=== PATIENT | female | born 1930 | race Caucasian/White ===

== ENCOUNTER 2016-09-28 19:15 | Inpatient (IN) | payer OTHER, MEDICARE ==
[~2016-09-28] VITALS: Ht 167.6 cm; Wt 82.6 kg
[~2016-09-28 19:15] MED LIST: [UNRECOGNIZED DRUG - REMARK]; [UNRECOGNIZED DRUG - REMARK]; [UNRECOGNIZED DRUG - REMARK]; lutein
[2016-09-28 19:23] VITALS: BP 170/80; PULSE 90; RESP 20; TEMP 98.3
--- NOTE | 2016-09-28 19:40 | PD ---
HPI Chief Complaint: Fall Time Seen by Provider: 19:39 Travel History International Travel<30 days: No Contact w/Intl Traveler<30days: No Traveled to known affect area: No History of Present Illness HPI Patient comes in for evaluation status post trip and fall while getting ready to play bingo. Patient states she tripped over a chair hitting the back of her head on the floor and landing on her right hip. Patient denies any loss of consciousness, headache, change in vision, vomiting, neck pain, chest pain, shortness of breath, numbness or tingling, or being on any blood thinners. Patient states she has pain in her right hip with movement that goes away with not moving it. Patient was offered something for pain, but does not want anything currently. PFSH Past Medical History Arthritis: Yes Cancer: Yes (COLON) High Cholesterol: Yes Diminished Hearing: No Menopausal: Yes Tubal Ligation: Yes Past Surgical History Abdominal Surgery: Yes (1986,1 1/2 feet of colon removed,colon ca) Appendectomy: Yes Other Surgery: Yes ("cyst removed from back") Social History Alcohol Use: Yes ("glass of wine every night") Tobacco Use: No Substance Use: No Allergies-Medications (Allergen,Severity, Reaction): Coded Allergies: No Known Allergies (Verified , 09/28/16) Reported Meds & Prescriptions Reported Meds & Active Scripts Active Reported Vitamin B12 (Cyanocobalamin) 100 Mcg Tab 100 Mcg PO DAILY Vitamin E 400 Unit Cap 400 Units PO DAILY Vitamin C (Ascorbic Acid) 500 Mg Cap 500 Mg PO Vitamin A 10,000 Unit Cap 10,000 Units PO DAILY Atorvastatin (Atorvastatin Calcium) 10 Mg Tab 10 Mg PO HS Losartan (Losartan Potassium) 25 Mg Tab 12.5 Mg PO DAILY ["water pill"] DAILY ["billberry"] DAILY [lutein] DAILY ["antibiotic"] BID Review of Systems Except as stated in HPI: all other systems reviewed are Neg Physical Exam Narrative GENERAL: Well-developed, overly nourished, in no acute distress, and non-ill appearing. SKIN: Warm and dry. HEAD: Atraumatic. Normocephalic. EYES: Pupils equal and round. EOMI. No scleral icterus. No injection or drainage. ENT: No nasal bleeding or discharge. Mucous membranes pink and moist. NECK: Trachea midline. No midline tenderness or crepitus. Supple. No nuclear rigidity. CARDIOVASCULAR: Regular rate and rhythm. No murmur appreciated. Pulses pulses 2+ intact bilaterally. Capillary refills less than 2 seconds. RESPIRATORY: No accessory muscle use. No respiratory distress. Clear to auscultation. Breath sounds equal bilaterally. MUSCULOSKELETAL: No obvious deformities. No clubbing. No cyanosis. No edema. Decreased range of motion right hip secondary to pain. Pelvic stable. Patient reports tenderness to palpation over right greater trochanter. Hip: Pulses equal BL distal to injury. Capillary refill less than 2 seconds distal to injury and equal BL. FROM distal to injury and equal BL. Strength distal to injury equal BL. NV intact distal to injury and equal BL. Plantar flexion and dorsal flexion equal BL. Dorsal pulses equal BL. Sensation intact over first web space and bilateral lower extremities. NEUROLOGICAL: Awake and alert. No obvious cranial nerve deficits. Motor grossly within normal limits. Normal speech. PSYCHIATRIC: Appropriate mood and affect; insight and judgment normal. Data Data Last Documented VS Orders Ct Brain W/O Iv Contrast(Rout) (09/28/16 ) Ct Cerv Spine W/O Contrast (09/28/16 ) Iv Access Insert/Monitor (09/28/16 19:37) Hip, Uni(Ap&Lat) W Ap Pelvis (09/28/16 ) Complete Blood Count With Diff (09/28/16 19:37) Act Partial Throm Time (Ptt) (09/28/16 19:37) Prothrombin Time / Inr (Pt) (09/28/16 19:37) Basic Metabolic Panel (Bmp) (09/28/16 19:37) Morphine Inj (Morphine Inj) (09/28/16 20:15) Ondansetron Inj (Zofran Inj) (09/28/16 20:15) Consult Orthopedic (09/28/16 ) Losartan (Cozaar) (09/28/16 22:00) Morphine Inj (Morphine Inj) (09/28/16 22:00) Admit Order (Ed Use Only) (09/28/16 21:58) Labs MDM Medical Decision Making Medical Screen Exam Complete: Yes Emergency Medical Condition: Yes Differential Diagnosis Fracture, contusion, strain, intracranial hemorrhage, closed head injury, other Narrative Course Patient seen and examined. Initial laboratory neurological status ordered and reviewed. Patient was given morphine for pain and Zofran for nausea. Discussed patient with Dr. Nuñez, who is in agreement with plan of care and disposition. Discussed all findings and plan of care with patient who is agreeable for admission. All questions were answered. Physician Communication Physician Communication [address] Thomas recommends having patient admitted to medicine for surgery likely tomorrow. [address] Yi, who is agreeable to admit the patient. Diagnosis Primary Impression: Closed right hip fracture Qualified Code: S72.001A - Closed right hip fracture, initial encounter Additional Impression: Closed head injury Qualified Code: S09.90XA - Closed head injury, initial encounter Admitting Information Admitting Physician Requests: Admit Scripts Cholecalciferol (Vitamin D3)5,000 Unit Cap5,000 Units PO DAILY #30 CAP Prov:Lenora Strickland MD 10/01/16 Rivaroxaban (Xarelto)10 Mg Tab10 Mg PO DAILY #21 TAB Ref 0 Prov:VASQUEZ PARRY PA-C 09/29/16 Hydrocodone-Acetaminophen (Supai)7.5-325 mg Tab1 Tab PO Q4H PRN (PAIN) #60 TAB Ref 0 Prov:VASQUEZ PARRY PA-C 09/29/16 Condition: Stable Elton Rhoades Sep 28, 2016 19:40 Eosinophils (%) (Auto) 1.9 % Basophils (%) (Auto) 1.0 % Neutrophils # (Auto) 7.0 TH/MM3 Lymphocytes # (Auto) 3.1 TH/MM3 Monocytes # (Auto) 0.8 TH/MM3 Eosinophils # (Auto) 0.2 TH/MM3 Basophils # (Auto) 0.1 TH/MM3 CBC Comment DIFF FINAL Differential Comment Prothrombin Time 11.2 SEC Prothromb Time International 1.0 RATIO Ratio Activated Partial 23.1 SEC Thromboplast Time Sodium Level 140 MEQ/L Potassium Level 4.5 MEQ/L Chloride Level 102 MEQ/L Carbon Dioxide Level 31.0 MEQ/L Anion Gap 7 MEQ/L Blood Urea Nitrogen 21 MG/DL Creatinine 0.86 MG/DL Estimat Glomerular Filtration 63 ML/MIN Rate Random Glucose 116 MG/DL Calcium Level 8.5 MG/DL MDM Medical Decision Making Medical Screen Exam Complete: Yes Emergency Medical Condition: Yes Differential Diagnosis Fracture, contusion, strain, intracranial hemorrhage, closed head injury, other Narrative Course Patient seen and examined. Initial laboratory neurological status ordered and reviewed. Patient was given morphine for pain and Zofran for nausea. Discussed patient with Dr. Nuñez, who is in agreement with plan of care and disposition. Discussed all findings and plan of care with patient who is agreeable for admission. All questions were answered. Physician Communication Physician Communication [address] Thomas recommends having patient admitted to medicine for surgery likely tomorrow. [address] Yi, who is agreeable to admit the patient. Diagnosis Primary Impression: Closed right hip fracture Qualified Code: S72.001A - Closed right hip fracture, initial encounter Additional Impression: Closed head injury Qualified Code: S09.90XA - Closed head injury, initial encounter Admitting Information Admitting Physician Requests: Admit Condition: Stable Elton Rhoades Sep 28, 2016 19:40
[2016-09-28] MEDS ORDERED: ASCO500C PO (19:53)
[2016-09-28] MEDS ORDERED: VITA100T15 PO (19:53)
[2016-09-28] MEDS ORDERED: VITA400C2 PO (19:53)
[2016-09-28] MEDS ORDERED: LOSA25TA PO (19:53)
[2016-09-28] MEDS ORDERED: [UNRECOGNIZED DRUG - CODE] PO (19:53)
[2016-09-28] MEDS ORDERED: ATOR10TA15 PO (19:53)
[2016-09-28 20:00] LABS: BASOPHIL # 0.1 TH/MM3 (0-0.2); EOSINOPHIL # 0.2 TH/MM3 (0-0.4); EOSINOPHIL % 1.9 % (0.0-4.0); HEMATOCRIT 38.8 % (35.0-46.0); LYMPH % 27.7 % (9.0-44.0); LYMPHOCYTE # 3.1 TH/MM3 (1.0-4.8); MEAN CORPUSCULAR HEMOGLOBIN 30.2 PG (27.0-34.0); MEAN CORPUSCULAR HGB CONC 33.9 % (32.0-36.0); MONO % 6.9 % (0.0-8.0); NEUT % 62.5 % (16.0-70.0); PLATELET COUNT 276 TH/MM3 (150-450); RED BLOOD COUNT 4.36 MIL/MM3 (4.00-5.30); RED CELL DISTRIBUTION WIDTH 13.8 % (11.6-17.2); WHITE BLOOD COUNT 11.1 TH/MM3 (4.0-11.0)
[2016-09-28 20:02] LABS: HEMO FLAGS DIFF FINAL
--- NOTE | 2016-09-28 20:10 | RADRPT ---
EXAM DATE/TIME: 09/28/2016 19:55 [facility] COMPARISON: No previous studies available for comparison. INDICATIONS : Right hip pain after fall. MEDICAL HISTORY : None. SURGICAL HISTORY : None. ENCOUNTER: Initial ACUITY: 1 day PAIN SCORE: 10/10 LOCATION: Right hip. FINDINGS: There is basi cervical fracture right femoral neck with moderate angulation. No other fractures are appreciated. CONCLUSION: Basi cervical fracture right hip. Casey Whitfield MD FACR on September 28, 2016 at 20:08 Board Certified Radiologist. This report was verified electronically.
[2016-09-28 20:12] VITALS: BP 205/88; PULSE 72; RESP 16; O2SAT 97
[2016-09-28 20:12] LABS: APTT (PATIENT) 23.1 SEC (24.3-30.1); PROTHROMBIN TIME - PATIENT 11.2 SEC (9.8-11.6)
[2016-09-28] MEDS ORDERED: MORPHINE SULFATE 4 MG/ML INJ IV PUSH ONE ×2 (20:15→22:00)
[2016-09-28] MEDS ORDERED: ONDANSETRON HCL 4 MG/2 ML VIAL IV PUSH ONE (20:15)
--- NOTE | 2016-09-28 20:30 | RADRPT ---
EXAM DATE/TIME: 09/28/2016 20:19 [facility] COMPARISON: No previous studies available for comparison. INDICATIONS : Fall with head trauma. RADIATION DOSE: 33.00 CTDIvol (mGy) MEDICAL HISTORY : Carcinoma, colon. SURGICAL HISTORY : None. ENCOUNTER: Initial ACUITY: 1 day PAIN SCALE: 5/10 LOCATION: cranial TECHNIQUE: Multiple contiguous axial images were obtained of the head. Using automated exposure control and adj ustment of the mA and/or kV according to patient size, radiation dose was kept as low as reasonably a chievable to obtain optimal diagnostic quality images. FINDINGS: CEREBRUM: The ventricles are normal for age. No evidence of midline shift, mass lesion, hemorrhage or acute in farction. No extra-axial fluid collections are seen. POSTERIOR FOSSA: The cerebellum and brainstem are intact. The 4th ventricle is midline. The cerebellopontine angle i s unremarkable. EXTRACRANIAL: The visualized portion of the orbits is intact. SKULL: The calvaria is intact. No evidence of skull fracture. CONCLUSION: No acute disease. Casey Whitfield MD FACR on September 28, 2016 at 20:28 Board Certified Radiologist. This report was verified electronically.
[2016-09-28 20:32] LABS: POTASSIUM 4.5 MEQ/L (3.5-5.1)
--- NOTE | 2016-09-28 20:59 | RADRPT ---
EXAM DATE/TIME: 09/28/2016 20:19 [facility] COMPARISON: No previous studies available for comparison. INDICATIONS : Fall with head trauma and neck pain. RADIATION DOSE: 20.58 CTDIvol (mGy) MEDICAL HISTORY : Carcinoma, colon. SURGICAL HISTORY : None. ENCOUNTER: Initial ACUITY: 1 day PAIN SCALE: 3/10 LOCATION: neck TECHNIQUE: Volumetric scanning of the cervical spine was performed. Multiplanar reconstructions i n the sagittal, coronal and oblique axial planes were performed. Using automated exposure control a nd adjustment of the mA and/or kV according to patient size, radiation dose was kept as low as reason ably achievable to obtain optimal diagnostic quality images. FINDINGS: Alignment is anatomic in the sagittal and coronal projections. There are mild degenerative changes at C1 and C2. C2-C3: The bony spinal canal is normal in size. No evidence of disc bulge or herniation. The neura l foramina are bilaterally patent. C3-C4: There is moderate facet disease present with minimal uncinate ridging. C4-C5: Moderate uncinate ridging is present with minimal bilateral neural foraminal encroachment. C5-C6: Moderate uncinate ridging is present with bilateral neural foraminal encroachment worse on th e right than the left. C6-C7: Moderate uncinate ridging is present with a central disc. There is moderate spinal stenosis. C7-T1: Degenerative changes are present in the facets. CONCLUSION: Degenerative changes without fracture. Casey Whitfield MD FACR on September 28, 2016 at 20:54 Board Certified Radiologist. This report was verified electronically.
[2016-09-28] MEDS ORDERED: LOSARTAN 25 MG TAB PO ONE (22:00)
[2016-09-28 23:15] VITALS: BP 162/84; PULSE 77; RESP 17; O2SAT 95
[2016-09-29] VITALS (9 sets, daily range): BP systolic 142–179; BP diastolic 66–85; PULSE 68–78; RESP 14–18; TEMP 97–98.2; O2SAT 92–98
[2016-09-29] MEDS ORDERED: MORPHINE SULFATE 4 MG/ML INJ IV PUSH PRN ×2 (03:00→11:45)
[2016-09-29] MEDS ORDERED: PILL SPLITTER OTHER PRN (03:00)
[2016-09-29] MEDS ORDERED: ONDANSETRON HCL 4 MG/2 ML VIAL IVP PRN (03:00)
[2016-09-29] MEDS ORDERED: NALOXONE HCL 0.4 MG/ML AMP IV PRN (03:00)
[2016-09-29] MEDS ORDERED: diphenhydrAMINE HCL 50 MG/ML VIAL IV PUSH ONE (03:00)
[2016-09-29] MEDS ORDERED: SODIUM CHLORIDE 0.9% FLUSH 5 ML FLUSH FLUSH PRN (03:00)
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
[2016-09-29] MEDS ORDERED: ENALAPRILAT 2.5 MG/2 ML VIAL IV PUSH PRN (04:15)
--- NOTE | 2016-09-29 07:27 | PD.ORT.PN ---
Subjective Subjective Remarks s/p fall at home right hip pain Objective Vitals Vital Signs Date Time Temp Pulse Resp B/P Pulse Ox O2 Delivery O2 Flow Rate FiO2 09/29/16 07:10 98.2 76 16 150/66 98 Nasal Cannula 2 09/29/16 07:10 76 16 98 Room Air 2 09/29/16 06:12 75 18 156/72 95 Room Air 09/29/16 04:56 73 14 179/83 96 Room Air 09/29/16 03:21 77 18 166/85 97 Room Air 09/28/16 23:17 76 15 96 Nasal Cannula 2 09/28/16 23:15 77 17 162/84 95 Room Air 09/28/16 20:12 72 16 205/88 97 Room Air 09/28/16 19:23 98.3 90 20 170/80 Result Diagram: 09/28/16194809/28/161948 Other Results Laboratory Tests Test 09/28/16 19:49 Prothrombin Time 11.2 SEC (9.8-11.6) Prothromb Time International 1.0 RATIO Ratio Objective Remarks RLE: pain with hip motion Assessment & Plan Assessment and Plan 1) Right femoral neck fx -consents -surgery this morning Christian Linares Sep 29, 2016 07:27
[2016-09-29] MEDS: SODIUM CHLORIDE 0.9% FLUSH 5 ML FLUSH FLUSH SCH ×2 (08:55→21:00)
[2016-09-29] MEDS: LOSARTAN 25 MG TAB PO SCH (08:55)
[2016-09-29] MEDS ORDERED: TRANEXAMIC ACID INJ 1,275 MG in SODIUM CHLORIDE 0.9% INJ 100 ML IV ONE (09:45)
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
[2016-09-29] MEDS ORDERED: XARE10TA PO (11:40)
[2016-09-29] MEDS ORDERED: HYDR-3288 PO (11:40)
--- NOTE | 2016-09-29 11:40 | PD.OP ---
cc: Ulises Ballard MD Operative Report Date of Surgery: Sep 29, 2016 Preoperative Diagnosis: Right femoral neck fracture Postoperative Diagnosis: Procedure: Right hip bipolar hemiarthroplasty Anesthesia: Gen. Surgeon: Ulises Ballard Electrical/Instrument Technician(s): ARNOLD Hodgson PA-C The surgical procedure was assisted by my physician assistant project engineer. My P.A. presence was necessary throughout this case for the manipulation and positioning of the surgical extremity. My P.A. was assisting me throughout the duration of this procedure. The skill set of a physician assistant project engineer was medically necessary to complete this procedure. During the surgical case the earth moving technician was working at the back table and the physician assistant project engineer was directly assisting me. Operation and Findings: PLAN OF ACTIVITY Weight bear as tolerated. IMPLANTS USED DePuy Corail size [15] stem with size [46] bipolar head and [+5] neck. DRAIN: 7 mm Jarred-Oliveira drain DETAILS OF PROCEDURE This patient was brought into the operating room and placed on the OR table. The patient was given anesthesia. The patient received IV antibiotics. The patient was then placed in lateral decubitus position. The hip and leg were prepped with alcohol, followed by Hibiclens and draped in a usual sterile fashion. Clean air was used for this procedure. Time out procedure was performed. The procedure began with a 5 inch incision over the posterolateral hip. The subcutaneous tissue was dissected with the Bovie. The iliotibial band were split in line with fibers. The Charnley retractor was placed. The piriformis and external rotators were released from the femur and tagged with a #1 Vicryl suture. The capsule is now incised and tagged with #1 Vicryl. The femoral neck fracture was now visualized. A corkscrew was now used to remove the femoral head. The femoral head was sized and measured. Soft tissue was now protected. The hip skid was placed underneath the femoral neck. An oscillating saw was used to make a femoral neck cut. At this point attention was turned to preparation of the proximal femur. A box osteotome was used to remove the lateral cortex of the femoral neck. The T- handle reamer was used to open the femoral canal. Next, the canal was broached. A lateralizing reamer was used to help lateralize the prosthesis. At this point a trial head and neck were placed. The hip was reduced. The patient was found to have excellent stability with good range of motion. Trial components were removed. Soft tissue and bone were thoroughly irrigated. A Corail stem was now opened. The stem was now impacted into the proximal femur. Care was taken to keep appropriate anteversion. The head and neck were now impacted onto the stem. The hip was again reduced. The hip was found to have good range of motion and good stability. Leg lengths were clinically equal. The wound was thoroughly irrigated. The capsule, piriformis and iliotibial band were closed with #1 Vicryl. Subcutaneous tissue was closed with 3-0 Vicryl. The skin was closed with romina. A sterile dressing was applied with Primapore. The patient was placed into a knee immobilizer. The patient was awakened and transferred to the recovery room in stable condition. Needle and sponge counts were correct. Ulises Ballard MD Sep 29, 2016 11:40
[2016-09-29] MEDS ORDERED: Post-op Orders (for Pharmacy) MISC XX ONE (11:45)
[2016-09-29] MEDS ORDERED: SODIUM CHLORIDE 0.9% FLUSH 5 ML FLUSH IVF PRN (11:45)
[2016-09-29] MEDS ORDERED: ceFAZolin 2 GM PREMIX 50 ML IV SCH (11:45)
[2016-09-29] MEDS ORDERED: ACETAMINOPHEN/HYDROcodone 325 MG/7.5 MG TAB PO PRN (11:45)
[2016-09-29] MEDS ORDERED: MIDAZOLAM HCL 2 MG/2 ML VIAL ONE (11:59)
[2016-09-29] MEDS ORDERED: FAMOTIDINE 20 MG/2 ML VIAL ONE (11:59)
[2016-09-29] MEDS ORDERED: DEXAMETHASONE SOD PHOS 4 MG/ML VIAL ONE (11:59)
[2016-09-29] MEDS ORDERED: ACETAMINOPHEN 1000 MG/100 ML VIAL IV ONE (11:59)
[2016-09-29] MEDS ORDERED: VANCOMYCIN HCL 1000 MG VIAL OTHER ONE (12:15)
[2016-09-29] MEDS ORDERED: LACTATED RINGER'S 1000 ML INJ 1,000 ML IV ONE (12:40)
[2016-09-29] MEDS ORDERED: PHENYLEPH/NS 1000 MCG/10 ML SYR IV ONE (12:40)
[2016-09-29] MEDS ORDERED: PROPOFOL 200 MG/20 ML AMP IV ONE (12:40)
[2016-09-29] MEDS ORDERED: ONDANSETRON HCL 4 MG/2 ML VIAL IV PUSH ONE (12:40)
[2016-09-29] MEDS ORDERED: NEOSTIGMINE 3 MG/3 ML SYR IV ONE (12:40)
[2016-09-29] MEDS ORDERED: DO NOT ADM ANY ANTICOAGULANT DRUGS XX PRN (14:00)
--- NOTE | 2016-09-29 15:03 | RADRPT ---
EXAM DATE/TIME: 09/29/2016 13:43 [facility] COMPARISON: HIP RIGHT (AP&LAT 2/3VWS) W AP PELVIS, September 28, 2016, 19:55. INDICATIONS : Post op right hip surgery. MEDICAL HISTORY : Basi cervical fracture right hip. SURGICAL HISTORY : None. ENCOUNTER: Subsequent ACUITY: 3 days PAIN SCORE: 0/10 LOCATION: Right Hip. FINDINGS: The patient is status post total right hip arthroplasty after a femoral neck fracture. The acetabular component appears somewhat vertically oriented. The femoral component is normal in position. There i s a drain adjacent to the greater trochanter. The remainder the osseous structures are intact. CONCLUSION: Status post total right hip arthroplasty. The acetabular component appears somewhat vertical on these views. Otherwise expected postsurgical change.. Erin Mckee MD on September 29, 2016 at 15:00 Board Certified Radiologist. This report was verified electronically.
[2016-09-29] MEDS ORDERED: ERGOCALCIFEROL (VIT D2) 50,000 UNIT CAP PO ONE (16:00)
[2016-09-29] MEDS ORDERED: fentaNYL CITRATE 250 MCG/5 ML AMP ONE (17:02)
[2016-09-29] MEDS: ceFAZolin 2 GM PREMIX 50 ML IV SCH (17:49)
[2016-09-29] MEDS: SODIUM CHLORIDE 0.9% FLUSH 5 ML FLUSH IVF SCH (21:00)
--- NOTE | 2016-09-29 21:02 | EKG ---
Date Performed: 09/29/2016 Time Performed: 11:16:34 PTAGE: 86 years EKG: Sinus rhythm LOW QRS VOLTAGE IN PRECORDIAL LEADS POSSIBLE INFERIOR MYOCARDIAL INFARCTION ABNORMAL ECG PREVIOUS TRACING : 05/23/2009 18.46 Compared to prior tracing no significant change DOCTOR: Ry Jalloh Interpretating Date/Time 09/29/2016 21:02:26
[2016-09-29] MEDS: ATORVASTATIN 10 MG TAB PO SCH (21:42)
[2016-09-30] VITALS: BP 135/77; PULSE 81; RESP 16; TEMP 97.6; O2SAT 94
[2016-09-30] MEDS: ceFAZolin 2 GM PREMIX 50 ML IV SCH ×2 (00:19→06:00)
[2016-09-30 04:57] LABS: HEMATOCRIT 34.2 % (35.0-46.0); REVIEW FLAG FINAL
[2016-09-30 08:00] VITALS: BP 148/70; PULSE 69; RESP 18; TEMP 96.2; O2SAT 97
[2016-09-30] MEDS: LOSARTAN 25 MG TAB PO SCH (08:53)
[2016-09-30] MEDS: SODIUM CHLORIDE 0.9% FLUSH 5 ML FLUSH FLUSH SCH ×2 (08:53→21:42)
[2016-09-30] MEDS: CHOLECALCIFEROL (VIT D3) 5000 UNIT CAP PO SCH (08:53)
[2016-09-30] MEDS: SODIUM CHLORIDE 0.9% FLUSH 5 ML FLUSH IVF SCH ×2 (08:54→21:00)
[2016-09-30] MEDS ORDERED: PNEUMOCOCCAL POLYVALENT INJ 25 MCG/0.5 ML SYR IM ONE (09:00)
[2016-09-30 12:00] VITALS: BP 111/57; PULSE 82; RESP 18; TEMP 97.6; O2SAT 93
[2016-09-30] MEDS: ENOXAPARIN SODIUM 30 MG/0.3 ML SYRINGE SQ SCH (12:34)
--- NOTE | 2016-09-30 14:06 | HHI.PR ---
Subjective Remarks 86 years old female baseline uses a cane for safety admitted s/p fall now post op #1 very motivated with physical therapy- minimal pain Objective Vitals Vital Signs Date Time Temp Pulse Resp B/P Pulse Ox O2 Delivery O2 Flow Rate FiO2 09/30/16 09:00 Room Air 09/30/16 08:00 96.2 69 18 148/70 97 09/30/16 07:25 Nasal Cannula 2.00 09/30/16 00:00 97.6 81 16 135/77 94 09/29/16 20:00 97.7 78 17 142/76 95 09/29/16 18:50 92 Nasal Cannula 3.00 09/29/16 15:40 97.0 72 18 154/72 92 09/29/16 15:15 74 18 158/86 96 Nasal Cannula 3 09/29/16 14:15 67 18 162/87 94 Nasal Cannula 3 I/O 09/29/16 09/29/16 09/29/16 09/30/16 09/30/16 09/30/16 06:59 14:59 22:59 06:59 14:59 22:59 Intake Total 1000 ml 1280 ml 240 ml Output Total 1770 ml 1425 ml Balance -770 ml -145 ml 240 ml Intake Oral 480 ml 240 ml IV Total 800 ml Other 1000 ml Output Urine Total 1600 ml 1425 ml Drainage Total 20 ml 0 ml Estimated Blood Loss 150 ml Other 0 ml # Voids 3 # Bowel Movements 0 0 0 Result Diagram: 09/30/16 0423 09/28/16 1949 Imaging Last Impressions Hip and Pelvis X-Ray 09/29/16 1136 Signed Impressions: Service Date/Time: Thursday, September 29, 2016 13:43 - CONCLUSION: Status post total right hip arthroplasty. The acetabular component appears somewhat vertical on these views. Otherwise expected postsurgical change.. Erin Mckee MD Head CT 09/28/16 0000 Signed Impressions: Service Date/Time: Wednesday, September 28, 2016 20:19 - CONCLUSION: No acute disease. Casey Whitfield MD FACR Cervical Spine CT 09/28/16 0000 Signed Impressions: Service Date/Time: Wednesday, September 28, 2016 20:19 - CONCLUSION: Degenerative changes without fracture. Casey Whitfield MD FACR Objective Remarks anicteric lungs- no rales or wheezes, no rhonchi regular rhythm abdomen soft right hip - post-op dressing in place/hemovac in place extremities no edema Procedures 09/29- S/P right hip bipolar arthroplasty Urinary Catheter: Yes Assessment to: Remove Date of Removal: Sep 30, 2016 A/P Problem List: (1) Closed right hip fracture ICD Code: S72.001A Status: Acute Assessment and Plan 86-year-old female with a history of hypertension and dyslipidemia presented with: Closed right hip fracture S/P right hip bipolar arthroplasty 09/29 - pain meds prn -Orthopedics ff -PT daily Hypertension, chronic - continue on Cozaar -Vasotec when necessary Dyslipidemia - Lipitor vit D deficiency - started on vit d supplements DVT prophylaxis: Lovenox DC planning- SNF- patient prefers [facility].- CM ff aong with us Problem Qualifiers (1) Closed right hip fracture: Qualified Code: S72.001A - Closed right hip fracture, initial encounter Lenora Strickland MD Sep 30, 2016 14:06
[2016-09-30 16:00] VITALS: BP 116/58; PULSE 71; RESP 18; TEMP 96.2; O2SAT 96
[2016-09-30 20:00] VITALS: BP 110/55; PULSE 82; RESP 20; TEMP 97.5; O2SAT 94
[2016-09-30] MEDS: ATORVASTATIN 10 MG TAB PO SCH (21:41)
[2016-10-01] VITALS: BP 125/64; PULSE 85; RESP 20; TEMP 100.6; O2SAT 92
--- NOTE | 2016-10-01 06:27 | PD.ORT.PN ---
Subjective Subjective Remarks POD 2 s/p right hip bipolar hemiarthroplasty doing well. out of bed with therapy. pain controlled Objective Vitals Vital Signs Date Time Temp Pulse Resp B/P Pulse Ox O2 Delivery O2 Flow Rate FiO2 10/01/16 00:00 100.6 85 20 125/64 92 09/30/16 20:00 97.5 82 20 110/55 94 09/30/16 16:00 96.2 71 18 116/58 96 09/30/16 12:00 97.6 82 18 111/57 93 09/30/16 09:00 Room Air 09/30/16 08:00 96.2 69 18 148/70 97 09/30/16 07:25 Nasal Cannula 2.00 I/O 09/30/16 09/30/16 09/30/16 10/01/16 10/01/16 10/01/16 07:00 15:00 23:00 07:00 15:00 23:00 Intake Total 240 ml 810 ml 280 ml Output Total 40 ml 390 ml Balance 240 ml 770 ml -110 ml Intake Oral 240 ml 600 ml 280 ml IV Total 210 ml Output Urine Total 350 ml Drainage Total 40 ml 40 ml # Voids 1 # Bowel Movements 0 0 0 Result Diagram: 09/30/16 0423 09/28/16 194 Objective Remarks RLE: dressing clean and dry. intact. +CKs. NVI Assessment & Plan Assessment and Plan 1) Right femoral neck fx s/p hemiarthroplasty - POD 2 -WBAT -posterior hip precautions -CKS while in bed -CM for rehab placement -ortho clear for discharge to SNF -f/u with [facility] or [facility] in 2 weeks Christian Linares Oct 01, 2016 06:27
[2016-10-01 08:00] VITALS: BP 133/68; PULSE 84; RESP 18; TEMP 99.3; O2SAT 92
[2016-10-01] MEDS: LOSARTAN 25 MG TAB PO SCH (08:57)
[2016-10-01] MEDS: SODIUM CHLORIDE 0.9% FLUSH 5 ML FLUSH FLUSH SCH ×2 (08:59→22:04)
[2016-10-01] MEDS: CHOLECALCIFEROL (VIT D3) 5000 UNIT CAP PO SCH (08:59)
[2016-10-01] MEDS: SODIUM CHLORIDE 0.9% FLUSH 5 ML FLUSH IVF SCH ×2 (09:00→22:05)
--- NOTE | 2016-10-01 09:54 | HHI.PR ---
Subjective Remarks pain controlled motivated and looking forward to getting more therapy prefers [facility] go to [facility] voiding spontaneously Objective Vitals Vital Signs Date Time Temp Pulse Resp B/P Pulse Ox O2 Delivery O2 Flow Rate FiO2 10/01/16 08:00 99.3 84 18 133/68 92 10/01/16 00:00 100.6 85 20 125/64 92 09/30/16 20:00 97.5 82 20 110/55 94 09/30/16 16:00 96.2 71 18 116/58 96 09/30/16 12:00 97.6 82 18 111/57 93 I/O 09/30/16 09/30/16 09/30/16 10/01/16 10/01/16 10/01/16 07:00 15:00 23:00 07:00 15:00 23:00 Intake Total 240 ml 810 ml 280 ml 480 ml Output Total 40 ml 390 ml 320 ml Balance 240 ml 770 ml -110 ml 160 ml Intake Oral 240 ml 600 ml 280 ml 480 ml IV Total 210 ml Output Urine Total 350 ml 280 ml Drainage Total 40 ml 40 ml 40 ml # Voids 1 # Bowel Movements 0 0 0 0 Result Diagram: 09/30/16 0423 09/28/16 1949 Imaging Last Impressions Hip and Pelvis X-Ray 09/29/16 1136 Signed Impressions: Service Date/Time: Thursday, September 29, 2016 13:43 - CONCLUSION: Status post total right hip arthroplasty. The acetabular component appears somewhat vertical on these views. Otherwise expected postsurgical change.. Erin Mckee MD Head CT 09/28/16 0000 Signed Impressions: Service Date/Time: Wednesday, September 28, 2016 20:19 - CONCLUSION: No acute disease. Casey Whitfield MD FACR Cervical Spine CT 09/28/16 0000 Signed Impressions: Service Date/Time: Wednesday, September 28, 2016 20:19 - CONCLUSION: Degenerative changes without fracture. Casey Whitfield MD FACR Objective Remarks anicteric lungs- no rales or wheezes, no rhonchi regular rhythm abdomen soft right hip - post-op dressing in place sensory intact extremities no edema Procedures 09/29- S/P right hip bipolar arthroplasty Date of Removal: Sep 30, 2016 A/P Problem List: (1) Closed right hip fracture ICD Code: S72.001A Status: Acute Assessment and Plan 86-year-old female with a history of hypertension and dyslipidemia presented with: Closed right hip fracture S/P right hip bipolar arthroplasty 09/29 - pain meds prn -Orthopedics ff -PT daily. WBAT Hypertension, chronic - continue on Cozaar -Vasotec when necessary Dyslipidemia - Lipitor vit D deficiency - started on vit d supplements DVT prophylaxis: Lovenox DC planning- SNF- patient prefers [facility].- CM ff aong with us- today if arranged- cleared by Ortho Problem Qualifiers (1) Closed right hip fracture: Qualified Code: S72.001A - Closed right hip fracture, initial encounter Lenora Strickland MD Oct 01, 2016 09:54
[2016-10-01] MEDS ORDERED: CHOL5000 PO (09:57)
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
[2016-10-01] MEDS: MAGNESIUM HYDROXIDE SUSP 30 ML CUP PO PRN (11:50)
[2016-10-01] MEDS: ENOXAPARIN SODIUM 30 MG/0.3 ML SYRINGE SQ SCH (11:50)
[2016-10-01] MEDS: ACETAMINOPHEN/HYDROcodone 325 MG/7.5 MG TAB PO PRN (11:52)
[2016-10-01 12:00] VITALS: BP 133/61; PULSE 79; RESP 18; TEMP 97; O2SAT 92
[2016-10-01 16:00] VITALS: BP 142/77; PULSE 83; RESP 18; TEMP 98.7; O2SAT 94
[2016-10-01] MEDS ORDERED: BISACODYL 10 MG SUPP RECTAL ONE (17:00)
[2016-10-01 19:00] VITALS: BP 110/64; PULSE 81; RESP 16; TEMP 97.8; O2SAT 94
[2016-10-01] MEDS: ATORVASTATIN 10 MG TAB PO SCH (22:04)
[2016-10-01 23:43] VITALS: BP 129/65; PULSE 76; RESP 16; TEMP 98.6; O2SAT 94
--- NOTE | 2016-10-02 06:59 | PD.ORT.PN ---
Subjective Subjective Remarks POD 3 s/p right hip bipolar hemiarthroplasty doing well. out of bed with therapy. pain controlled Objective Vitals Vital Signs Date Time Temp Pulse Resp B/P Pulse Ox O2 Delivery O2 Flow Rate FiO2 10/01/16 23:43 98.6 76 16 129/65 94 10/01/16 19:00 97.8 81 16 110/64 94 10/01/16 16:00 98.7 83 18 142/77 94 10/01/16 12:00 97.0 79 18 133/61 92 10/01/16 08:00 99.3 84 18 133/68 92 I/O 10/01/16 10/01/16 10/01/16 10/02/16 10/02/16 10/02/16 07:00 15:00 23:00 07:00 15:00 23:00 Intake Total 480 ml 1080 ml 480 ml Output Total 320 ml Balance 160 ml 1080 ml 480 ml Intake Oral 480 ml 1080 ml 480 ml Output Urine Total 280 ml Drainage Total 40 ml # Voids 5 3 # Bowel Movements 0 0 0 Result Diagram: 09/30/16 0423 09/28/16 194 Objective Remarks RLE: dressing clean and dry. intact. +CKs. NVI Assessment & Plan Assessment and Plan 1) Right femoral neck fx s/p hemiarthroplasty - POD 3 -WBAT -posterior hip precautions -CKS while in bed -CM for rehab placement -ortho clear for discharge to SNF -f/u with [facility] or [facility] in 2 weeks Christian Linares Oct 02, 2016 06:59
[2016-10-02] MEDS: SODIUM CHLORIDE 0.9% FLUSH 5 ML FLUSH IVF SCH (07:15)
[2016-10-02 08:00] VITALS: BP 141/76; PULSE 79; RESP 18; TEMP 99.8; O2SAT 92
--- NOTE | 2016-10-02 08:37 | HHI.PR ---
Subjective Remarks pain well controlled + BM no abdominal, nausea or vomiting Objective Vitals Vital Signs Date Time Temp Pulse Resp B/P Pulse Ox O2 Delivery O2 Flow Rate FiO2 10/01/16 23:43 98.6 76 16 129/65 94 10/01/16 19:00 97.8 81 16 110/64 94 10/01/16 16:00 98.7 83 18 142/77 94 10/01/16 12:00 97.0 79 18 133/61 92 I/O 10/01/16 10/01/16 10/01/16 10/02/16 10/02/16 10/02/16 07:00 15:00 23:00 07:00 15:00 23:00 Intake Total 480 ml 1080 ml 480 ml Output Total 320 ml Balance 160 ml 1080 ml 480 ml Intake Oral 480 ml 1080 ml 480 ml Output Urine Total 280 ml Drainage Total 40 ml # Voids 5 3 # Bowel Movements 0 0 0 Result Diagram: 09/30/16 0423 09/28/16 1949 Imaging Last Impressions Hip and Pelvis X-Ray 09/29/16 1136 Signed Impressions: Service Date/Time: Thursday, September 29, 2016 13:43 - CONCLUSION: Status post total right hip arthroplasty. The acetabular component appears somewhat vertical on these views. Otherwise expected postsurgical change.. Erin Mckee MD Head CT 09/28/16 0000 Signed Impressions: Service Date/Time: Wednesday, September 28, 2016 20:19 - CONCLUSION: No acute disease. Casey Whitfield MD FACR Cervical Spine CT 09/28/16 0000 Signed Impressions: Service Date/Time: Wednesday, September 28, 2016 20:19 - CONCLUSION: Degenerative changes without fracture. Casey Whitfield MD FACR Objective Remarks anicteric lungs- no rales or wheezes, no rhonchi regular rhythm abdomen soft right hip - post-op dressing in place sensory intact extremities no edema Procedures 09/29- S/P right hip bipolar arthroplasty Date of Removal: Sep 30, 2016 A/P Problem List: (1) Closed right hip fracture ICD Code: S72.001A Status: Acute Assessment and Plan 86-year-old female with a history of hypertension and dyslipidemia presented with: Closed right hip fracture S/P right hip bipolar arthroplasty 09/29 - pain meds prn -Orthopedics ff -PT daily. WBAT Hypertension, chronic - continue on Cozaar -Vasotec when necessary Dyslipidemia - Lipitor vit D deficiency - started on vit d supplements DVT prophylaxis: Carisanox DC planning- SNF- patient prefers [facility].- CM ff aong with us- today if arranged- Problem Qualifiers (1) Closed right hip fracture: Qualified Code: S72.001A - Closed right hip fracture, initial encounter Lenora Strickland MD Oct 02, 2016 08:37
[2016-10-02] MEDS: CHOLECALCIFEROL (VIT D3) 5000 UNIT CAP PO SCH (08:44)
[2016-10-02] MEDS: LOSARTAN 25 MG TAB PO SCH (08:44)
[2016-10-02] MEDS: SODIUM CHLORIDE 0.9% FLUSH 5 ML FLUSH FLUSH SCH (08:44)
[2016-10-02] MEDS: MAGNESIUM HYDROXIDE SUSP 30 ML CUP PO PRN (08:54)
[2016-10-02] MEDS: ACETAMINOPHEN/HYDROcodone 325 MG/7.5 MG TAB PO PRN (10:32)
== END 2016-10-02 13:12 | DRG 470 ==
LOC: NEPE 19:15 → NEDA 21:59 → NEDH 09-29 02:13 → N06B 09-29 15:44
PROVIDERS: ADMIT Internal Medicine; ATTEND Internal Medicine
PROC: 0SRR0JA Replacement of Right Hip Joint, Femoral Surface with Synthetic Substitute, Uncemented, Open Approach (ICD-10-PCS; principal; 2016-09-29 12:02)
DX: S72.001A Fracture of unspecified part of neck of right femur, initial encounter for closed fracture (principal); S09.90XA Unspecified injury of head, initial encounter; I10 Essential (primary) hypertension; E78.5 Hyperlipidemia, unspecified; Z85.038 Personal history of other malignant neoplasm of large intestine; W19.XXXA Unspecified fall, initial encounter; W08.XXXA Fall from other furniture, initial encounter; Y92.838 Other recreation area as the place of occurrence of the external cause; Z87.891 Personal history of nicotine dependence; E55.9 Vitamin D deficiency, unspecified; M19.90 Unspecified osteoarthritis, unspecified site
CPT/HCPCS: 70450; 72125; 73502; 80048; 82306; 85014; 85018; 85025; 85610; 85730; 93005; 96374; 96375; C1776; J0131; J0690; J1100; J1200; J1650; J2250; J2270; J2370; J2405; J2710; J3010; J3370; J7120; L1830